=== PATIENT | male | born 1955 | race African-American/Black ===

== ENCOUNTER 2017-10-07 17:19 | Emergency (ER) | payer MEDICARE, MEDICAID ==
[~2017-10-07] VITALS: Ht 165.1 cm; Wt 70.0 kg
[~2017-10-07 17:19] MED LIST: ALBU18HF2; AMOX-73; CLON0.2T; DILT180C3; LISI-604; LORA-16; POTA8CAP10; SIMV20TA6
[2017-10-07] MEDS ORDERED: IBUPROFEN 800MG TABLET PO ONE (23:15)
[2017-10-08 01:31] VITALS: BP 203/120
== END 2017-10-08 01:32 | disposition home or self-care (01) ==
LOC: ER 17:19
DX: S80.02XA Contusion of left knee, initial encounter (principal); I10 Essential (primary) hypertension; E78.00 Pure hypercholesterolemia, unspecified; W22.8XXA Striking against or struck by other objects, initial encounter; Y93.89 Activity, other specified; Y92.098 Other place in other non-institutional residence as the place of occurrence of the external cause
CPT/HCPCS: 73562; 99284

== ENCOUNTER 2018-05-26 10:32 | Emergency (ER) | payer MEDICARE, MEDICAID ==
[~2018-05-26] VITALS: Ht 167.6 cm; Wt 59.0 kg
[2018-05-26 12:49] LABS: HEMATOCRIT. 40.6 % (42.0-52.0); HEMOGLOBIN. 13.8 g/dL (14.0-18.0); MEAN CORPUSCULAR HEMOGLOBIN 31.4 pg (28.0-32.0); MEAN CORPUSCULAR VOLUME 92.4 fL (80.0-94.0); MEAN PLATELET VOLUME 8.7 fl (7.4-10.4); PLATELET 201 x1000/uL (130-400); RED BLOOD CELL COUNT 4.39 mill/uL (4.7-6.1); RED CELL DISTRIBUTION WIDTH 14.5 % (11.6-14.6)
[2018-05-26 12:54] LABS: CHLORIDE 107 mEq/L (98-107)
[2018-05-26 12:56] LABS: PROTHROMBIN TIME 10.8 sec (9.6-11.0)
[2018-05-26 13:21] LABS: PLATELET ESTIMATE NORMAL
[2018-05-26 13:46] VITALS: BP 185/95
[2018-05-26 16:03] LABS: CLARITY URINE CLEAR (CLEAR); COLOR URINE YELLOW (YELLOW); KETONES URINE NEGATIVE (NEGATIVE); LEUKOCYTE ESTERASE URINE NEGATIVE (NEGATIVE); NITRITE URINE NEGATIVE (NEGATIVE); OCCULT BLOOD URINE NEGATIVE (NEGATIVE); PROTEIN URINE NEGATIVE (NEGATIVE); SPECIFIC GRAVITY URINE 1.012 (1.005-1.030)
== END 2018-05-26 16:25 | disposition home or self-care (01) ==
LOC: ER 10:32
DX: D72.829 Elevated white blood cell count, unspecified (principal); J40 Bronchitis, not specified as acute or chronic; E78.00 Pure hypercholesterolemia, unspecified; I10 Essential (primary) hypertension; Z79.899 Other long term (current) drug therapy
CPT/HCPCS: 36415; 71045; 84484; 93005; 99284

== ENCOUNTER 2022-03-10 13:44 | Emergency (ER) | payer MEDICARE, MEDICAID ==
[~2022-03-10] VITALS: Ht 162.6 cm; Wt 68.0 kg
[~2022-03-10 13:44] MED LIST changes: -AMOX-73; -DILT180C3; +DILT180C87; +FINA1TAB18 PO; +IBUP-2029 PO; -LISI-604; +LISI20TA31; +POTA-205 PO; -POTA8CAP10; +POTA8CAP20; +SACU1TAB7 PO; +SIMV-43; -SIMV20TA6; +TAMS-11 MT
[2022-03-10 14:38] VITALS: BP 162/95
[2022-03-10 18:43] LABS: BASOPHILS % 0.2 % (0.0-2.0); HEMATOCRIT. 40.7 % (42.0-52.0); HEMOGLOBIN. 13.7 g/dL (14.0-18.0); LYMPHOCYTES % 9.7 % (20.0-50.0); MEAN CORPUSCULAR HEMOGLOBIN 30.9 pg (28.0-32.0); MEAN CORPUSCULAR VOLUME 91.9 fL (80.0-94.0); MEAN PLATELET VOLUME 8.8 fl (7.4-10.4); MONOCYTES % 8.7 % (2.0-8.0); NEUTROPHILS % 81.4 % (40.0-76.0); PLATELET 248 x1000/uL (130-400); RED BLOOD CELL COUNT 4.43 mill/uL (4.7-6.1); RED CELL DISTRIBUTION WIDTH 14.6 % (11.6-14.6)
[2022-03-10 19:02] LABS: CHLORIDE 107 mEq/L (98-107)
[2022-03-10 19:06] LABS: CLARITY URINE CLOUDY (CLEAR); COLOR URINE DARK YELLOW (YELLOW); KETONES URINE NEGATIVE (NEGATIVE); LEUKOCYTE ESTERASE URINE 3+ (NEGATIVE); NITRITE URINE POSITIVE (NEGATIVE); OCCULT BLOOD URINE 3+ (NEGATIVE); PROTEIN URINE 2+ (NEGATIVE); SPECIFIC GRAVITY URINE 1.011 (1.005-1.030)
[2022-03-10] MEDS ORDERED: CEFP200T13 MT (19:14)
[2022-03-10] MEDS ORDERED: LIDOCAINE HCL 1% 20ML VIAL (Pyxis) INJ INFIL ONE (19:15)
[2022-03-10] MEDS ORDERED: CEFTRIAXONE SODIUM 1 G/VIAL IM ONE (19:15)
[2022-03-10] MEDS ORDERED: LIDOCAINE HCL 1% 10 MG/ML 10ML VIAL IJ NR (19:30)
== END 2022-03-10 19:47 | disposition home or self-care (01) ==
LOC: ER 13:53
DX: R33.9 Retention of urine, unspecified (principal); E78.00 Pure hypercholesterolemia, unspecified; E11.9 Type 2 diabetes mellitus without complications; I11.0 Hypertensive heart disease with heart failure; I50.9 Heart failure, unspecified; Z79.899 Other long term (current) drug therapy; Z98.890 Other specified postprocedural states
CPT/HCPCS: 36415; 51702; 80053; 81003; 85025; 87077; 87086; 87186; 96372; 99284; J0696; A4315

== ENCOUNTER 2022-03-29 19:55 | Emergency (ER) | payer MEDICARE, MEDICAID ==
[~2022-03-29] VITALS: Ht 167.6 cm; Wt 67.0 kg
[~2022-03-29 19:55] MED LIST changes: +CEFP200T13 MT
[2022-03-29 20:31] VITALS: BP 156/78
[2022-03-30 00:14] LABS: BASOPHILS % 0.5 % (0.0-2.0); EOSINOPHILS % 2.3 % (0.0-5.0); HEMATOCRIT. 36.7 % (42.0-52.0); HEMOGLOBIN. 12.3 g/dL (14.0-18.0); LYMPHOCYTES % 15.5 % (20.0-50.0); MEAN CORPUSCULAR HEMOGLOBIN 31.5 pg (28.0-32.0); MEAN CORPUSCULAR VOLUME 94.2 fL (80.0-94.0); MEAN PLATELET VOLUME 8.8 fl (7.4-10.4); MONOCYTES % 14.1 % (2.0-8.0); NEUTROPHILS % 67.6 % (40.0-76.0); PLATELET 159 x1000/uL (130-400); RED BLOOD CELL COUNT 3.89 mill/uL (4.7-6.1); RED CELL DISTRIBUTION WIDTH 15.9 % (11.6-14.6)
[2022-03-30 03:42] LABS: CLARITY URINE TURBID (CLEAR); COLOR URINE RED (YELLOW); KETONES URINE NEGATIVE (NEGATIVE); LEUKOCYTE ESTERASE URINE 2+ (NEGATIVE); NITRITE URINE POSITIVE (NEGATIVE); OCCULT BLOOD URINE 1+ (NEGATIVE); PROTEIN URINE 2+ (NEGATIVE); SPECIFIC GRAVITY URINE 1.021 (1.005-1.030); UROBILINOGEN URINE 0.2 E.U./dL (0.2-1.0)
[2022-03-30] MEDS ORDERED: SULF1TAB48 MT (04:05)
== END 2022-03-30 04:29 | disposition home or self-care (01) ==
LOC: ER 19:55
DX: T83.83XA Hemorrhage due to genitourinary prosthetic devices, implants and grafts, initial encounter (principal); N39.0 Urinary tract infection, site not specified; E78.00 Pure hypercholesterolemia, unspecified; N40.0 Benign prostatic hyperplasia without lower urinary tract symptoms; I11.0 Hypertensive heart disease with heart failure; I50.9 Heart failure, unspecified; Y84.6 Urinary catheterization as the cause of abnormal reaction of the patient, or of later complication, without mention of misadventure at the time of the procedure; Y92.018 Other place in single-family (private) house as the place of occurrence of the external cause
CPT/HCPCS: 36415; 80048; 81003; 85025; 99283; A4315

== ENCOUNTER 2022-06-05 05:09 | Inpatient (IN) | payer MEDICARE, MEDICAID ==
[~2022-06-05] VITALS: Ht 167.6 cm; Wt 73.9 kg
[~2022-06-05 05:09] MED LIST changes: -ALBU18HF2; +ALBU18HF2 IH; +AMLO5TAB88 PO; -CEFP200T13 MT; -CLON0.2T; +CLON0.2T PO; -DILT180C87; +DILT180C87 PO; +FLUT15.844 BOTHNSTRLS; -IBUP-2029 PO; -LISI20TA31; -LORA-16; +LORA-16 PO; +NITR100C PO; -POTA8CAP20
[2022-06-05] MEDS ORDERED: CEFAZOLIN SODIUM 1000MG/VIAL ONE (07:19)
[2022-06-05] MEDS ORDERED: PROPOFOL 200MG/20ML VIAL IV ONE (07:20)
[2022-06-05] MEDS ORDERED: DEXAMETHASONE 4MG/ML 1ML VIAL ONE (07:22)
[2022-06-05] MEDS ORDERED: MIDAZOLAM HCL 2 MG/2 ML VIAL ONE (07:22)
[2022-06-05] MEDS ORDERED: KETOROLAC 30MG/ML VIAL ONE (07:22)
[2022-06-05] MEDS ORDERED: ONDANSETRON HCL 4MG/2ML INJ ONE (07:22)
[2022-06-05] MEDS ORDERED: FENTANYL CITRATE/PF 50MCG/ML 2ML VIAL ONE (07:51)
[2022-06-05] MEDS ORDERED: SUCCINYLCHOLINE CHLORIDE 200MG/10ML IV ONE (08:06)
[2022-06-05] MEDS ORDERED: FENTANYL CITRATE/PF 50MCG/ML 2ML VIAL IV PRN (08:45)
[2022-06-05] MEDS ORDERED: HYDROMORPHONE HCL/PF 2MG/ML CPJ IV PRN (08:45)
[2022-06-05] MEDS ORDERED: ATEN50TA PO (10:42)
[2022-06-05] MEDS ORDERED: FLUT16SP15 BOTHNSTRLS (11:01)
[2022-06-05] MEDS ORDERED: LACTATED RINGERS 1,000 ML IV SCH (12:00)
[2022-06-05 12:44] VITALS: BP 92/65
[2022-06-05] MEDS ORDERED: HYDROCODONE/ACETAMINOPHEN 5/325MG TABLET PO PRN (14:00)
[2022-06-05] MEDS ORDERED: MAGNESIUM HYDROXIDE 400MG/5ML 30ML UDC PO PRN (14:00)
[2022-06-05] MEDS ORDERED: LORAZEPAM 1MG TABLET PO PRN (14:00)
[2022-06-05 14:29] VITALS: BP 92/65
[2022-06-05 16:00] VITALS: BP 104/46
[2022-06-05] MEDS ORDERED: LEVOFLOXACIN 500MG TABLET PO NR (16:00)
[2022-06-05] MEDS ORDERED: NALOXONE HCL 0.4MG/ML VIAL IV PRN (16:00)
[2022-06-05] MEDS: GENTAMICIN 80MG PREMIX 100 ML IV SCH ×2 (17:23→23:26)
[2022-06-05 18:02] LABS: HEMOGLOBIN 11.3 g/dL (14.0-18.0)
[2022-06-05] MEDS: DOCUSATE SODIUM 100MG CAPSULE PO SCH (18:05)
[2022-06-05 18:12] LABS: CHLORIDE 107 mEq/L (98-107)
[2022-06-05 20:00] VITALS: BP 118/58
[2022-06-06] VITALS (7 sets, daily range): BP systolic 112–142; BP diastolic 56–75
[2022-06-06 06:34] LABS: HEMATOCRIT. 27.4 % (42.0-52.0); HEMOGLOBIN. 9.3 g/dL (14.0-18.0); MEAN CORPUSCULAR HEMOGLOBIN 32.4 pg (28.0-32.0); MEAN CORPUSCULAR VOLUME 95.1 fL (80.0-94.0); MEAN PLATELET VOLUME 9.2 fl (7.4-10.4); PLATELET 154 x1000/uL (130-400); RED BLOOD CELL COUNT 2.88 mill/uL (4.7-6.1); RED CELL DISTRIBUTION WIDTH 15.9 % (11.6-14.6)
[2022-06-06] MEDS: AMLODIPINE 5MG TABLET PO SCH (09:36)
[2022-06-06] MEDS: DOCUSATE SODIUM 100MG CAPSULE PO SCH ×2 (09:36→17:10)
[2022-06-06] MEDS: FUROSEMIDE 40MG TABLET PO SCH (09:36)
[2022-06-06] MEDS: POTASSIUM CHLORIDE 20MEQ TABLET SR PO SCH (09:36)
[2022-06-06] MEDS: LEVOFLOXACIN 500MG TABLET PO SCH (11:31)
[2022-06-06 16:05] LABS: PLATELET ESTIMATE NORMAL
[2022-06-06] MEDS: FERROUS SULFATE 325MG TABLET PO SCH (17:10)
[2022-06-07] VITALS: BP 159/72
[2022-06-07 04:00] VITALS: BP 158/79
[2022-06-07] MEDS: FERROUS SULFATE 325MG TABLET PO SCH ×2 (07:50→13:33)
[2022-06-07 08:00] VITALS: BP 179/84
[2022-06-07] MEDS: DOCUSATE SODIUM 100MG CAPSULE PO SCH (08:44)
[2022-06-07] MEDS: POTASSIUM CHLORIDE 20MEQ TABLET SR PO SCH (08:44)
[2022-06-07] MEDS: FUROSEMIDE 40MG TABLET PO SCH (08:45)
[2022-06-07] MEDS: AMLODIPINE 5MG TABLET PO SCH (08:45)
[2022-06-07] MEDS: LEVOFLOXACIN 500MG TABLET PO SCH (11:16)
[2022-06-07 14:05] VITALS: BP 133/77
== END 2022-06-07 14:30 | disposition home or self-care (01) | DRG 713 ==
LOC: OR 05:09 → 7EST 05:10 → 6EST 06-06 14:50
PROVIDERS: ADMIT Urology; ATTEND Urology
PROC: 0VT08ZZ Resection of Prostate, Via Natural or Artificial Opening Endoscopic (ICD-10-PCS; principal; 2022-06-05)
DX: N40.1 Benign prostatic hyperplasia with lower urinary tract symptoms (principal); N13.8 Other obstructive and reflux uropathy; Z20.822 Contact with and (suspected) exposure to COVID-19; N41.9 Inflammatory disease of prostate, unspecified
CPT/HCPCS: 36415; 80048; 84132; 85014; 85018; 85025; 86850; 86900; 87426; 88305; C9803; J0330; J0690; J1100; J1580; J1885; J2250; J2405; J2704; J3010

== ENCOUNTER → 2024-04-27 | Day surgery (SDC) | payer MEDICARE, MEDICAID ==
[~2024-04-27] VITALS: Ht 170.2 cm; Wt 65.8 kg
[~2024-04-27] MED LIST changes: +ASPI-1497 PO; +ATOR40TA70 PO; +FENTANYL CITRATE/PF 50MCG/ML 2ML VIAL ONE; +FINA1TAB14 PO; -FINA1TAB18 PO; -FLUT15.844 BOTHNSTRLS; +FLUT16SP15 BOTHNSTRLS; +FLUT1AER IH; +FURO40TA5 PO; +GENTAMICIN SULF 40MG/ML 2ML VIAL ONE; +HYDRALAZINE 20MG/ML VIAL IV PRN; +HYDROMORPHONE HCL/PF 1MG/ML INJ IV PRN; +LABETALOL 5MG/ML 20ML VIAL IV ONE; +ONDANSETRON HCL 4MG/2ML INJ IV PRN; +ONDANSETRON HCL 4MG/2ML INJ ONE; +POTA-189 PO; +PROPOFOL 200MG/20ML VIAL IV ONE; +ROCURONIUM BROMIDE 10MG/ML VIAL 5ML IV ONE; +SUGAMMADEX SODIUM 200MG/2ML VIAL IV ONE
[2024-04-27] MEDS: LACTATED RINGERS 1,000 ML IV SCH (09:40)
== END | disposition home or self-care (01) ==
LOC: OR 08:42
PROVIDERS: ATTEND Urology
DX: N20.0 Calculus of kidney (principal); N39.0 Urinary tract infection, site not specified; N40.1 Benign prostatic hyperplasia with lower urinary tract symptoms; I10 Essential (primary) hypertension; I25.2 Old myocardial infarction; E78.00 Pure hypercholesterolemia, unspecified; M19.90 Unspecified osteoarthritis, unspecified site; I25.10 Atherosclerotic heart disease of native coronary artery without angina pectoris; J45.909 Unspecified asthma, uncomplicated; Z79.899 Other long term (current) drug therapy; Z79.82 Long term (current) use of aspirin; Z87.440 Personal history of urinary (tract) infections; Z98.890 Other specified postprocedural states
CPT/HCPCS: 50590; 71045; J3010; J1580; J3490 ×2; J2405; J2704